=== PATIENT | female | born 1985 | race Caucasian/White ===

== ENCOUNTER 2019-06-15 18:37 | Emergency (ER) | payer BC ==
[~2019-06-15] VITALS: Ht 154.9 cm; Wt 98.2 kg
[~2019-06-15 18:37] MED LIST: AZIT250T PO; CIPR500T4 PO; FAMO-96 PO; IBUP-1542 PO; LACT1CAP57 PO; LOPE2CAP PO; LORA0.5T PO; ONDA4TAB14 PO
[2019-06-15 19:08] VITALS: BP 124/60; PULSE 105; RESP 16; Ht 154.9 cm; Wt 98.2 kg
--- NOTE | 2019-06-15 19:44 | ERD ---
ER Documentation Chief Complaint Chief Complaint COUGH AND FEVER X YESTERDAY. HPI Patient is a 34-year-old female, no past medical history, presents the ER for concerns of sore throat and fever x1 day. Patient states she believes 1 of her "clients" got her sick. Patient does have a history of strep pharyngitis and she feels that symptoms are similar. Patient does not have a cough contrary to triage note. Patient denies any nausea, vomiting, abdominal pain, chest pain, shortness of breath or LOC. Patient denies any recent travel. ROS All systems reviewed and are negative except as per history of present illness. Medications Home Meds Active Scripts Ibuprofen* (Motrin*) 600 Mg Tab, 600 MG PO Q6, #30 TAB Prov:RICK TYLER PA-C 06/15/19 Azithromycin* (Zithromax*) 250 Mg Tablet, 250 MG PO .ZPACK DIRECTED, #6 TAB TAKE 500 MG (2 TABS) THE FIRST DAY THEN 250 MG (1 TAB) DAYS 2-5 Prov:RICK TYLER PA-C 06/15/19 Lorazepam* (Lorazepam*) 0.5 Mg Tablet, 0.5 MG PO TID PRN for anxi, #12 TAB Prov:SHAKA LAMBERT PA-C 04/16/15 Allergies Allergies: Coded Allergies: Penicillins (Verified Allergy, Unknown, 06/15/19) PMhx/Soc History of Surgery: Yes (C SECTION; GALLBLADDER SURGERY) Anesthesia Reaction: No Hx Neurological Disorder: No Hx Respiratory Disorders: No Hx Cardiac Disorders: No Hx Psychiatric Problems: Yes (ANXIETY) Hx Miscellaneous Medical Probl: No Hx Alcohol Use: No Hx Substance Use: No Hx Tobacco Use: Yes FmHx Family History: No diabetes Physical Exam Vitals Vital Signs Date Temp Pulse Resp B/P (MAP) Pulse Ox O2 O2 Flow FiO2 Time Delivery Rate 06/15/19 100.5 105 16 124/60 98 19:08 (81) Physical Exam GENERAL: Well-developed, well-nourished female. Appears in no acute distress. HEAD: Normocephalic, atraumatic. No deformities or ecchymosis. EYE: Pupils equal, round, and reactive to light. EOMs intact. No conjunctival erythema. No eye discharge. ENT: External ear without any masses or tenderness. Auditory canals clear bilaterally. TM visualized bilaterally, non-erythematous, non-bulging. Nasal mucosa pink with no discharge. Oropharynx is erythematous with 1+ tonsillar enlargement noted bilaterally. Exudates noted on the left tonsil. No unilateral tonsillar swelling.. No uvula deviation. No kissing tonsils. NECK: Supple. No meningismus. Normal ROM of the neck. LUNG: Clear to auscultation bilaterally. No rhonchi, wheezing, rales or coarse breath sounds. HEART: Tachycardia cardiac. No murmurs, rubs or gallops. EXTREMITES: Equal pulses bilaterally. No peripheral clubbing, cyanosis or edema. No unilateral leg swelling. NEUROLOGIC: Alert and oriented to person, place and time. Moving all four extremities. 5/5 strength in all extremities. Normal speech. Steady gait. SKIN: Normal color. Warm and dry. No rashes or lesions. Procedures/MDM MEDICAL DECISION MAKING: This is a 34-year-old female presents ER for concerns of throat pain and fever x1 day.. Patient was seen in [facility]. Vital signs were reviewed. Patient was noted to have low-grade temperature of 100.5 Fahrenheit. Patient was offered antipyretics here however she states she preferred to go home and take antipyretics.. Patient was not hypoxic. The patient does not have trismus, muffled voice, uvula deviation, unilateral tonsillar swelling, or drooling. No signs of neck swelling or hyperextension of the neck noted. Centor criteria was noted to be 4 out of 5. Will treat patient with course of antibiotics at this time for concerns of presumed strep pharyngitis. Patient states she has an allergy to penicillins. Patient be treated with azithromycin. Low suspicion for epiglottitis, peritonsillar abscess, retropharyngeal abscess, Ludwigs angina, meningitis, viral pharyngitis, dental abscess. Low suspicion for sepsis. Patient was nontoxic, non-apparent prior to discharge. PRESCRIPTIONS: Azithromycin, ibuprofen DISCHARGE: At this time, patient is stable for discharge and outpatient management. Diaz pportive therapies such as OTC throat lozenges and warm salt water gurgles were discussed. I have instructed the patient to follow-up with his/her primary care physician in 1-2 days. I have discussed with the patient the possibility of needing to see a specialist for further workup and imaging studies if symptoms persist. I have instructed the patient to promptly return to the ER for any new or worsening symptoms including increased pain, fever, nausea, vomiting, weakness or LOC. The patient and/or family expressed understanding of and agreement with this plan. All questions were answered. Home care instructions were provided. Disclaimer: Inadvertent spelling and grammatical errors are likely due to EHR/dictation software use and do not reflect on the overall quality of patient care. Also, please note that the electronic time recorded on this note does not necessarily reflect the actual time of the patient encounter. Departure Diagnosis: Primary Impression: Pharyngitis Pharyngitis/tonsillitis etiology: unspecified etiology Qualified Codes: J02.9 - Acute pharyngitis, unspecified Condition: Fair Patient Instructions: Pharyngitis, Strep (Presumed) Referrals: [facility] YOU HAVE RECEIVED A MEDICAL SCREENING EXAM AND THE RESULTS INDICATE THAT YOU DO NOT HAVE A CONDITION THAT REQUIRES URGENT TREATMENT IN THE EMERGENCY DEPARTMENT. FURTHER EVALUATION AND TREATMENT OF YOUR CONDITION CAN WAIT UNTIL YOU ARE SEEN IN YOUR DOCTORS OFFICE WITHIN THE NEXT 1-2 DAYS. IT IS YOUR RESPONSIBILITY TO MAKE AN APPOINTMENT FOR [facility]. IF YOU HAVE A PRIMARY DOCTOR --you should call your primary doctor and schedule an appointment IF YOU DO NOT HAVE A PRIMARY DOCTOR YOU CAN CALL OUR PHYSICIAN REFERRAL HOTLINE AT IF YOU CAN NOT AFFORD TO SEE A PHYSICIAN YOU CAN CHOSE FROM THE FOLLOWING [facility] [place] [address] [facility]. [facility] [address] [facility]. [facility] [address] [facility]. [facility] [address] [facility] [address] [facility]. [facility]. [address] [facility]. [facility] YOU HAVE RECEIVED A MEDICAL SCREENING EXAM AND THE RESULTS INDICATE THAT YOU DO NOT HAVE A CONDITION THAT REQUIRES URGENT TREATMENT IN THE EMERGENCY DEPARTMENT. FURTHER EVALUATION AND TREATMENT OF YOUR CONDITION CAN WAIT UNTIL YOU ARE SEEN IN YOUR DOCTORS OFFICE WITHIN THE NEXT 1-2 DAYS. IT IS YOUR RESPONSIBILITY TO MAKE AN APPOINTMENT FOR FOLOW-UP CARE. IF YOU HAVE A PRIMARY DOCTOR --you should call your primary doctor and schedule and appointment IF YOU DO NOT HAVE A PRIMARY DOCTOR YOU CAN CALL OUR PHYSICIAN REFERRAL HOTLINE AT . IF YOU CAN NOT AFFORD TO SEE A PHYSICIAN YOU CAN CHOSE FROM THE FOLLOWING [facility] INSTITUTIONS: [facility] [address] [place] [address] [facility] [address] [place] [address] [facility] [address] [place] [address] [facility] URGENT CARE/SPECIALTIES Additional Instructions: Call your primary care doctor TOMORROW for an appointment during the next 1-2 days.See the doctor sooner or return here if your condition worsens before your appointment time. RICK TYLER PA-C Jun 15, 2019 19:44
== END 2019-06-15 19:40 | disposition home or self-care (01) ==
LOC: E/R 18:37
DX: J02.9 Acute pharyngitis, unspecified (principal); Z87.891 Personal history of nicotine dependence
CPT/HCPCS: 99283

== ENCOUNTER 2019-06-22 22:19 | Emergency (ER) | payer BC ==
[~2019-06-22] VITALS: Ht 160 cm; Wt 100.0 kg
[2019-06-22 22:43] VITALS: BP 107/66; PULSE 88; RESP 18; Ht 160 cm; Wt 100.0 kg
[2019-06-22] MEDS ORDERED: ONDANSETRON (ODT) 4 MG TAB ODT STA (23:42)
[2019-06-23] MEDS ORDERED: LIDOCAINE/MYLANTA 40 ML BTL PO ONE
--- NOTE | 2019-06-23 02:15 | ERD ---
ER Documentation Chief Complaint Chief Complaint EPIGASTRIC PAIN AND BURNING X TODAY. HPI 34-year-old female presented to ED for epigastric pain x2 days. Patient also states she has nausea vomiting diarrhea. Patient states the symptoms started after she had Del taco 2 days ago. She stated the symptoms started about 2 hours after she ate the food. Patient states that she had her gallbladder removed and she has no other past medical history of past medical surgeries besides that. Patient states she has an allergy to morphine and amoxicillin. Patient states her allergies to both of them is very mild she is never had an anaphylactic reaction and that she only had a mild rash when she took amoxicillin and that was when she was a child. Patient states that she does drink alcohol a few times a week. Patient states the pain is about a 7 out of 10 and is worse after she eats food. She also states that she has had 4-6 ep isodes of diarrhea each day since yesterday. ROS All systems reviewed and are negative except as per history of present illness. Medications Home Meds Active Scripts Loperamide Hcl* (Imodium*) 2 Mg Capsule, 2 MG PO .AFTER EA LOOSE BM PRN for VIVIENNE RRHEA, #10 TAB Prov:JULISSA MATOS PA-C 06/23/19 Ondansetron (Ondansetron Odt) 4 Mg Tab.rapdis, 4 MG PO Q6H PRN for NAUSEA AND/OR VOMITING, #10 TAB Prov:JULISSA MATOS PA-C 06/23/19 Lactobacillus Rhamnosus* (Culturelle*) 1 Each Cap.sprink, 1 CAP PO BID for 30 Days, CAP Prov:JULISSA MATOS PA-C 06/23/19 Famotidine* (Pepcid*) 20 Mg Tablet, 20 MG PO BID for 4 Days, TAB Prov:JULISSA MATOS PA-C 06/23/19 Ciprofloxacin Hcl* (Ciprofloxacin Hcl*) 500 Mg Tablet, 500 MG PO BID for 3 Days, TAB Prov:JULISSA MATOS PA-C 06/23/19 Ibuprofen* (Motrin*) 600 Mg Tab, 600 MG PO Q6, #30 TAB Prov:RICK TYLER PA-C 06/15/19 Azithromycin* (Zithromax*) 250 Mg Tablet, 250 MG PO .FRANCO DIRECTED, #6 TAB TAKE 500 MG (2 TABS) THE FIRST DAY THEN 250 MG (1 TAB) DAYS 2-5 Prov:RICK TYLER PA-C 06/15/19 Lorazepam* (Lorazepam*) 0.5 Mg Tablet, 0.5 MG PO TID PRN for anxi, #12 TAB Prov:SHAKA LAMBERT PA-C 04/16/15 Allergies Allergies: Coded Allergies: Penicillins (Verified Allergy, Unknown, 06/15/19) amoxicillin (Verified Allergy, Unknown, 06/22/19) morphine (Verified Allergy, Unknown, 06/22/19) PMhx/Soc History of Surgery: Yes (C SECTION; GALLBLADDER SURGERY) Anesthesia Reaction: No Hx Neurological Disorder: No Hx Respiratory Disorders: No Hx Cardiac Disorders: No Hx Psychiatric Problems: Yes (ANXIETY) Hx Miscellaneous Medical Probl: No Hx Alcohol Use: No Hx Substance Use: No Hx Tobacco Use: Yes Smoking Status: Current every day smoker FmHx Family History: No diabetes, No coronary disease, No other Physical Exam Vitals Vital Signs Date Temp Pulse Resp B/P (MAP) Pulse Ox O2 O2 Flow FiO2 Time Delivery Rate 06/22/19 98.2 88 18 107/66 100 22:43 (80) Physical Exam GENERAL: Moderate distress CHEST: Clear to auscultation bilaterally. There are no rales, wheezes or rhonchi. HEART: Regular rate and rhythm. No murmurs, clicks, rubs or gallops. ABDOMEN:Soft, nontender and nondistended. Good bowel sounds. No rebound or guarding. No gross peritonitis. No gross organomegaly or masses. No Pack sign or McBurney point tenderness. BACK: No midline or flank tenderness. EXTREMITIES: Equal pulses bilaterally. There is no peripheral clubbing, cyanosis or edema. No focal swelling or erythema. Full range of motion. Grossly neurovascularly intact. Result Diagram: 06/22/19 0848 06/22/19 8468 Results 24 hrs Laboratory Tests Test 06/22/19 23:54 06/22/19 23:57 06/23/19 00:00 06/23/19 00:02 Urine Color YELLOW Urine Clarity CLOUDY Urine pH 5.0 Urine Specific 1.028 [place] Urine Ketones NEGATIVE mg/dL Urine Nitrite NEGATIVE mg/dL Urine Bilirubin NEGATIVE mg/dL Urine NEGATIVE mg/dL Urobilinogen Urine Leukocyte 2+ Praveen/ul Esterase Urine Microscopic 12 /HPF RBC Urine Microscopic 5 /HPF WBC Urine Squamous MANY /HPF Epithelial Cells Urine Bacteria FEW /HPF Urine Mucus MANY /HPF Urine Hemoglobin 2+ mg/dL Urine Glucose NEGATIVE mg/dL Urine Total NEGATIVE mg/dl Protein White Blood Count 9.8 10^3/ul Red Blood Count 5.84 10^6/ul Hemoglobin 13.8 g/dl Hematocrit 45.5 % Mean Corpuscular 77.9 fl Volume Mean Corpuscular 23.6 pg Hemoglobin Mean Corpuscular 30.3 g/dl Hemoglobin Concen t Red Cell 15.3 % Distribution Width Platelet Count 342 10^3/UL Mean Platelet 10.6 fl Volume Immature 0.400 % Granulocytes % Neutrophils % 81.6 % Lymphocytes % 14.4 % Monocytes % 2.8 % Eosinophils % 0.4 % Basophils % 0.4 % Nucleated Red 0.0 /100WBC Blood Cells % Immature 0.040 10^3/ul Granulocytes # Neutrophils # 8.0 10^3/ul Lymphocytes # 1.4 10^3/ul Monocytes # 0.3 10^3/ul Eosinophils # 0.0 10^3/ul Basophils # 0.0 10^3/ul Nucleated Red 0.0 10^3/ul Blood Cells # Sodium Level 139 mmol/L Potassium Level 4.4 mmol/L Chloride Level 101 mmol/L Carbon Dioxide 30 mmol/L Level Anion Gap 8 Blood Urea 13 mg/dl Nitrogen Creatinine 0.67 mg/dl Est Glomerular > 60 mL/min Filtrat Rate mL/min Glucose Level 114 mg/dl Calcium Level 9.3 mg/dl Total Bilirubin 0.6 mg/dl Direct Bilirubin 0.00 mg/dl Indirect 0.6 mg/dl Bilirubin Aspartate Amino 40 IU/L Transf (AST/SGOT) Alanine 54 IU/L Aminotransferase (ALT/SGPT) Alkaline 98 IU/L Phosphatase Total Protein 9.2 g/dl Albumin 4.3 g/dl Globulin 4.90 g/dl Albumin/Globulin 0.87 Ratio Lipase 60 U/L POC Beta HCG, NEGATIVE Qualitative Bedside Urine pH 5.5 (LAB) Bedside Urine 1+ Protein (LAB) Bedside Urine Negative Glucose (UA) Bedside Urine Negative Ketones (LAB) Bedside Urine 2+ Blood Bedside Urine Negative Nitrite (LAB) Bedside Urine 1+ Leukocyte Esteras e (L Current Medications Medications Dose Sig/Eddi Start Time Status Last (Trade) Ordered Route PRN Stop Time Admin Dose Reason Admin Ondansetron 8 mg ONCE STAT 06/22/19 DC 06/23/19 HCl (Zofran ODT 23:42 00:09 Odt) 06/22/19 23:46 40 ml ONCE ONCE 06/23/19 DC 06/23/19 Miscellaneous PO 00:00 00:09 Medication 06/23/19 00:01 (Gi Cocktail (2)) Procedures/MDM ED course: The patient was stable throughout the ED course. The patient and/or family informed of laboratory and diagnostic imaging results throughout the ED course. Medications given in ER: Zofran GI cocktail Patient tolerated medication well with no adverse reactions. Patient reported improvement in pain. Medical decision making: Is a 34-year-old female presenting to the ED for 7 out of 10 epigastric pain. She also states that she has diarrhea and abdominal pain. Patient states the symptoms began after she had Del taco 2 days ago. Patient is afebrile vitals are within normal limits. Physical exam was unremarkable her abdomen was soft nontender. The patient had her gallbladder removed several years ago. Patient was given GI cocktail and Zofran and upon reevaluation the patient appears to be doing much better she states that the pain is down to a 1 out of 10 and she no longer feels nauseous. The patient remained stable during her entire visit in the ED. Patient's labs were unremarkable. At this time I have low suspicion for acute appendicitis, pancreatitis acute abdominal emergency, pyelonephritis, meningitis, cardiovascular emergency. At this time the symptoms are most consistent with viral gastroenteritis versus GERD. I also want to treat the patient prophylactically for infectious diarrhea with Cipro. Advised the patient symptoms worsen return to ED immediately otherwise follow-up with a primary care provider in 1 to 2 days. Patient is agreement the treatment plan had no further questions upon discharge Prescription for home: Beatrice Jefferscibreana Cipro I have discussed with the patient proper use and common side effects to expert with the medication . I advised the patient/family to speak with the pharmacis t dispensing the medication to be advised of any potential drug interactions with other medication or supplements they may be taking. Discharge: At this time, patient is stable for discharge and outpatient management. I have instructed the patient to follow-up with his\her primary care physician in 1 to 2 days. I have discussed with the patient the possibility of needing to see a specialist for further work-up and imaging studies if symptoms persist. I have instructed the patient to promptly return to the ER for any new or worsening symptoms including increased pain, fever, nausea, vomiting, weakness or LOC. The patient and\or family expressed understanding of and agreement with this plan. All questions were answered. Home care instructions were provided. Disclaimer: Inadvertent spelling and grammatical errors are likely due to EHR\dictation software use and do not reflect on the overall quality of patient care. Also, please note that the electronic time recorded on the note does not necessarily reflect the actual time of the patient encounter. Departure Diagnosis: Primary Impression: GERD (gastroesophageal reflux disease) Esophagitis presence: without esophagitis Qualified Codes: K21.9 - Gastro- esophageal reflux disease without esophagitis Additional Impressions: Viral gastroenteritis Acute infectious diarrhea Condition: Stable Patient Instructions: Gastroenteritis, Bacterial (Child) (Adult), Gerd (Adult) Referrals: [facility] YOU HAVE RECEIVED A MEDICAL SCREENING EXAM AND THE RESULTS INDICATE THAT YOU DO NOT HAVE A CONDITION THAT REQUIRES URGENT TREATMENT IN THE EMERGENCY DEPARTMENT. FURTHER EVALUATION AND TREATMENT OF YOUR CONDITION CAN WAIT UNTIL YOU ARE SEEN IN YOUR DOCTORS OFFICE WITHIN THE NEXT 1-2 DAYS. IT IS YOUR RESPONSIBILITY TO MAKE AN APPOINTMENT FOR FOLOW-UP CARE. IF YOU HAVE A PRIMARY DOCTOR --you should call your primary doctor and schedule an appointment IF YOU DO NOT HAVE A PRIMARY DOCTOR YOU CAN CALL OUR PHYSICIAN REFERRAL HOTLINE AT IF YOU CAN NOT AFFORD TO SEE A PHYSICIAN YOU CAN CHOSE FROM THE FOLLOWING [facility] [address] [facility]. [facility] [address] [facility]. [facility] [address] [facility]. [facility] [address] [facility]. [facility] [address] [facility]. [facility]. [address] [facility]. [facility] YOU HAVE RECEIVED A MEDICAL SCREENING EXAM AND THE RESULTS INDICATE THAT YOU DO NOT HAVE A CONDITION THAT REQUIRES URGENT TREATMENT IN THE EMERGENCY DEPARTMENT. FURTHER EVALUATION AND TREATMENT OF YOUR CONDITION CAN WAIT UNTIL YOU ARE SEEN IN YOUR DOCTORS OFFICE WITHIN THE NEXT 1-2 DAYS. IT IS YOUR RESPONSIBILITY TO MAKE AN APPOINTMENT FOR FOLOW-UP CARE. IF YOU HAVE A PRIMARY DOCTOR --you should call your primary doctor and schedule and appointment IF YOU DO NOT HAVE A PRIMARY DOCTOR YOU CAN CALL OUR PHYSICIAN REFERRAL HOTLINE AT . IF YOU CAN NOT AFFORD TO SEE A PHYSICIAN YOU CAN CHOSE FROM THE FOLLOWING [facility] INSTITUTIONS: [facility] [address] [place] [address] [facility] [address] [place] [address] [facility] + [facility] [address] [place] [address] Additional Instructions: Call your primary care doctor TOMORROW for an appointment during the next 1-2 d ays.See the doctor sooner or return here if your condition worsens before your appointment time. JULISSA MATOS PA-C Jun 23, 2019 02:15
== END 2019-06-23 01:04 | disposition home or self-care (01) ==
LOC: FTE 22:19
DX: K21.9 Gastro-esophageal reflux disease without esophagitis (principal); F17.210 Nicotine dependence, cigarettes, uncomplicated; A08.39 Other viral enteritis
CPT/HCPCS: 80053; 81001; 81003; 81025; 83690; 85025; Z7610; 99283